=== PATIENT | female | born 1985 | race Hispanic/Latino ===

== ENCOUNTER 2024-01-09 08:16 | Emergency (ER) | payer OTHER ==
[~2024-01-09] VITALS: Ht 152.4 cm; Wt 77.1 kg
[2024-01-09 08:22] VITALS: PULSE 73; RESP 14; TEMP 97.9; O2SAT 100
[2024-01-09 08:53] LABS: INFLUENZA A AG NEGATIVE (NEGATIVE)
[2024-01-09 08:54] LABS: CORONAVIRUS COVID-19 AG NEGATIVE (NEGATIVE); INFLUENZA B AG NEGATIVE (NEGATIVE)
[2024-01-09 09:30] LABS: COLOR,URINE YELLOW (YELLOW)
[2024-01-09 09:31] LABS: BILIRUBIN,URINE NEGATIVE (NEGATIVE); CLARITY,URINE TURBID (CLEAR); GLUCOSE, URINE NEGATIVE (NEGATIVE); KETONES,URINE NEGATIVE (NEGATIVE); LEUKOCYTE ESTERASE ,URINE NEGATIVE (NEGATIVE); NITRITE,URINE NEGATIVE (NEGATIVE); PH,URINE 7 (5 - 7); PROTEIN,URINE DIPSTICK NEGATIVE (NEGATIVE); URINE UROBILINOGEN 1 mg/dL (0.2 - 1)
[2024-01-09 09:32] LABS: PREGNANCY TEST, URINE NEGATIVE (NEGATIVE)
[2024-01-09 09:56] LABS: BACTERIA,URINE MANY /HPF; EPITHELIAL CELLS,URINE FEW /LPF; RBC,URINE 0-5 /HPF (0-5); WBC,URINE (MAN) 0-5 /HPF (0-5)
[2024-01-09] MEDS ORDERED: CEFDINIR300 MG PO (10:01)
== END 2024-01-09 10:10 | disposition home or self-care (01) ==
LOC: ER 08:25
DX: R53.1 Weakness (principal); N39.0 Urinary tract infection, site not specified; R53.83 Other fatigue; Z11.52 Encounter for screening for COVID-19
CPT/HCPCS: 81001; 81025; 99284